=== PATIENT | female | born 1935 ===

== ENCOUNTER 2018-11-03 17:38 | Emergency (ER) | payer MEDICARE, MEDICAID ==
[2018-11-03 18:58] LABS: BASO % 0.4 % (0.0-2.0); EOS # 0.1 K/uL (0.0-0.7); HEMOGLOBIN 10.3 g/dL (12.0-16.0); LYMPH # 1.9 K/uL (1.0-4.3); LYMPH % 21.6 % (20.0-40.0); MEAN CELL VOLUME 90.4 fl (81.0-99.0); MEAN CORPUSCULAR HEMOGLOBIN 29.1 pg (27.0-31.0); MEAN CORPUSCULAR HGB CONC 32.1 g/dL (33.0-37.0); MEAN PLATELET VOLUME 8.3 fl (7.2-11.7); MONO # 0.9 K/uL (0.0-0.8); MONO % 10.6 % (0.0-10.0); NEUT # 5.9 K/uL (1.8-7.0); NEUT % 66.4 % (50.0-75.0); RBC 3.54 Mil/uL (3.80-5.20); RED CELL DISTRIBUTION WIDTH 14.4 % (11.5-14.5); WHITE BLOOD COUNT 8.9 K/uL (4.8-10.8)
[2018-11-03 19:12] LABS: ALB/GLOB RATIO 1.2 (1.0-2.1); CALCIUM 9.5 mg/dL (8.4-10.2)
[2018-11-03] MEDS ORDERED: Insulin Regular 100 units/ml SC STA (19:42)
[2018-11-03] MEDS ORDERED: Sodium Chloride 0.9% 1,000 ML IV STA (19:42)
--- NOTE | 2018-11-03 19:46 | ED PDOC ---
HPI: Hypertension/Hypotension Time Seen by Provider: 11/03/18 18:14 Chief Complaint (Nursing): High Blood Pressure Chief Complaint (Provider): high blood pressure and high blood sugar History Per: Patient, Family (daughter in law) History/Exam Limitations: no limitations Additional Complaint(s): 83 y/o Female with hx of HTN, HL, DM-II who presents for evaluation of HTN and high blood sugars. Daughter in law states that patient saw her PMD on 10/26 for routine follow up at which time blood work was done that showed Cr. 1.2, LDL 174, HDL 61, HgB 10.2. Pt was given medications but both patient and daughter in law are unsure if medications were adjusted. Pt currently takes Glimepiride 4mg PO daily and Valsartan HCT 100/25mg PO daily. She has been taking these medications with no improvement. Blood sugars continue to range from 300 - 500 and SBP 160s to 180s. Patient denies any symptoms and feels well except for pain at a burn on her Left foot from 2 weeks ago. States that she takes Tylenol intermittently for pain. Denies fever, chills, night sweats, pus drainage or redness at Left foot. Further denies C/P, palpitations, SOB, dizziness, confusion, ROCA, visual changes. Past Medical History Reviewed: Historical Data, Nursing Documentation, Vital Signs Vital Signs: Last Vital Signs Temp 98.1 F 11/03/18 18:03 Pulse 113 H 11/03/18 18:03 Resp 18 11/03/18 18:03 BP 152/70 H 11/03/18 18:03 Pulse Ox 97 11/03/18 18:03 Primary Care Provider: [facility]ience - Medical History PMH: Diabetes, HTN, Hypercholesterolemia - Family History Family History: States: Unknown Family Hx - Allergies Allergies/Adverse Reactions: Allergies Allergy/AdvReac Type Severity Reaction Status Date / Time No Known Allergies Allergy Verified 11/03/18 18:09 Review of Systems Constitutional: Negative for: Fever, Chills Cardiovascular: Negative for: Chest Pain, Palpitations Respiratory: Negative for: Shortness of Breath Gastrointestinal: Negative for: Nausea Genitourinary Female: Negative for: Dysuria Neurological: Negative for: Weakness, Incoordination, Confusion, Altered Mental Status, Headache, Dizziness Physical Exam - Reviewed Nursing Documentation Reviewed: Yes Vital Signs Reviewed: Yes - Physical Exam Appears: Positive for: Well Head Exam: Positive for: ATRAUMATIC Skin: Positive for: Normal Color Neck: Positive for: Normal Cardiovascular/Chest: Positive for: Regular Rate, Rhythm Respiratory: Positive for: Normal Breath Sounds Gastrointestinal/Abdominal: Positive for: Normal Exam Neurological/Psych: Positive for: Awake, Alert, Oriented, Gait (normal ) - Laboratory Results Result Diagrams: 11/03/18 18:30 11/03/18 18:30 Lab Results: Total Bilirubin 0.4 mg/dl (0.2-1.3) 11/03/18 18:30 AST 22 U/L (14-36) 11/03/18 18:30 ALT 22 U/L (9-52) 11/03/18 18:30 Alkaline Phosphatase 72 U/L (38-126) 11/03/18 18:30 Total Protein 7.4 G/DL (6.3-8.2) 11/03/18 18:30 Albumin 4.0 g/dL (3.5-5.0) 11/03/18 18:30 Globulin 3.5 gm/dL (2.2-3.9) 11/03/18 18:30 Albumin/Globulin Ratio 1.2 (1.0-2.1) 11/03/18 18:30 - ECG O2 Sat by Pulse Oximetry: 97 Medical Decision Making Medical Decision Making: Accucheck 331 Normal Saline 1L IV x 1 Regular insulin 8units SQ x 1 CBC, BMP Labs: BUN/Cr 58/1.4 Glucose: 331 Labs unchanged from baseline labs drawn on 10/26. Patient endorsed to TRAE Hines pending re-evaluation after fluids and fingerstick rechecked. Disposition - Clinical Impression Clinical Impression: Hyperglycemia due to type 2 diabetes mellitus, Hypertension - Patient ED Disposition Is Patient to be Admitted: Transfer of Care (TRAE Hines) - Disposition Disposition: Transfer of Care Disposition Time: 20:00 Condition: FAIR Forms: [facility] (Lithuanian)
[2018-11-03] MEDS ORDERED: Insulin Regular 100 units/ml ONE (19:49)
--- NOTE | 2018-11-03 20:15 | ED PDOC ---
- Laboratory Results Result Diagrams: 11/03/18 18:30 11/03/18 18:30 Lab Results: Total Bilirubin 0.4 mg/dl (0.2-1.3) 11/03/18 18:30 AST 22 U/L (14-36) 11/03/18 18:30 ALT 22 U/L (9-52) 11/03/18 18:30 Alkaline Phosphatase 72 U/L (38-126) 11/03/18 18:30 Total Protein 7.4 G/DL (6.3-8.2) 11/03/18 18:30 Albumin 4.0 g/dL (3.5-5.0) 11/03/18 18:30 Globulin 3.5 gm/dL (2.2-3.9) 11/03/18 18:30 Albumin/Globulin Ratio 1.2 (1.0-2.1) 11/03/18 18:30 Urine dip results: Positive for: Leukocyte Esterase (TRACE), Glucose. Negative for: Blood, Nitrate, Ketones, Bilirubin, Protein - ECG O2 Sat by Pulse Oximetry: 97 - Progress ED Course And Treament: EKG SINUS TACHYCARDIA 107BPM; NO ECTOPY NO ACUTE CHANGES ACCUCHECK 79 CXR: NAD Disposition - Clinical Impression Clinical Impression: Hyperglycemia due to type 2 diabetes mellitus, Hypertension - POA Present On Arrival: None - Disposition Disposition: Routine/Home Disposition Time: 21:40 Condition: FAIR Additional Instructions: FOLLOW UP WITH PMD TOMORROW. Instructions: Diabetes Diet Print Language: JAPANESE
[2018-11-03 20:47] LABS: B-TYPE NATRIURETIC PEPTIDE 188 pg/ml (0-900)
[2018-11-03 21:49] VITALS: BP 151/76; PULSE 94; RESP 15; TEMP 97.9; O2SAT 98
[2018-11-03 22:10] LABS: SQUAMOUS EPITHIAL 4 /hpf (0-5); URINE BACTERIA RARE (<OCC); URINE BILIRUBIN NEGATIVE (NEGATIVE); URINE BLOOD SMALL (NEGATIVE); URINE CLARITY SLIGHTY-CLOUDY (Clear); URINE COLOR STRAW (YELLOW); URINE GLUCOSE (UA) >=500 mg/dL (NEGATIVE); URINE LEUKOCYTE ESTERASE LARGE Leu/uL (Negative); URINE PROTEIN NEGATIVE (NEGATIVE); URINE UROBILINOGEN 0.2-1.0 mg/dL (0.2-1.0)
--- NOTE | 2018-11-04 08:17 | RAD ---
Date of service: 11/03/2018 HISTORY: ROUTINE COMPARISON: No prior. TECHNIQUE: 1 view obtained. FINDINGS: LUNGS: No active pulmonary disease. PLEURA: No significant pleural effusion identified, no pneumothorax apparent. CARDIOVASCULAR: There is presence of aortic atherosclerotic calcification on x-ray. Normal cardiac size. No significant appearing pulmonary vascular congestion. Bronchovascular markings appear top. OSSEOUS STRUCTURES: Thoracic spondylosis. Mild bilateral shoulder arthrosis. VISUALIZED UPPER ABDOMEN: Normal. OTHER FINDINGS: None. IMPRESSION: No pulmonary infiltrate effusions. Normal heart size. Probable top-normal pulmonary vasculature.
== END 2018-11-03 21:49 | disposition home or self-care (01) ==
LOC: H.ER 17:38
DX: E11.65 Type 2 diabetes mellitus with hyperglycemia (principal); I10 Essential (primary) hypertension; E78.00 Pure hypercholesterolemia, unspecified
CPT/HCPCS: 71045; 80053; 81003; 82948; 83880; 84484; 85025; 87086; 96372; 99285; J7030